=== PATIENT | female | born 1965 | race Caucasian/White ===

== ENCOUNTER 2021-11-03 10:56 | Outpatient (CLI) | payer OTHER ==
[2021-11-03 15:30] LABS: BASOPHILS % (AUTO) 0.5 %; HGB - HEMOGLOBIN 13.8 g/dL (12.0-16.0); LYMPHOCYTES # (AUTO) 0.8 10^3/uL (1.5-3.5); LYMPHOCYTES % (AUTO) 20.4 %; MEAN CORPUSCULAR HEMOGLOBIN 33.7 pg (27.0-31.0); MEAN CORPUSCULAR HGB CONC 33.7 g/dL (32.0-36.0); MEAN PLATELET VOLUME 9.7 fL (7.9-10.8); MONOCYTES # (AUTO) 0.4 10^3/uL (0.0-1.0); MONOCYTES % (AUTO) 9.8 %; NEUTROPHILS # (AUTO) 2.8 10^3/uL (1.5-6.6); NEUTROPHILS % (AUTO) 68.1 %; PLT - PLATELET COUNT 401 10^3/uL (130-450); RED CELL DISTRIBUTION WIDTH 12.1 % (12.0-15.0); WHITE BLOOD COUNT 4.1 x10^3/uL (4.8-10.8)
[2021-11-03 15:59] LABS: % IRON SATURATION 30 % (20-50); ALBUMIN 3.9 g/dL (3.2-5.5); ALBUMIN/GLOBULIN RATIO 1.2 (1.0-2.2); ALKALINE PHOSPHATASE 61 IU/L (42-121); ALT ALANINE AMINOTRANSFERASE 27 IU/L (10-60); AST ASPARTATE AMINOTRANSFERASE 24 IU/L (10-42); BILIRUBIN,TOTAL 0.7 mg/dL (0.2-1.0); BUN - BLOOD UREA NITROGEN 14 mg/dL (6-20); CALCIUM 9.3 mg/dL (8.5-10.3); CARBON DIOXIDE - CO2 26 mmol/L (21-32); CHLORIDE 105 mmol/L (101-111); CHOL/HDL RATIO 2.5 (<4.4); CHOLESTEROL 168 mg/dL; CREATININE 0.6 mg/dL (0.4-1.0); GFR - MDRD 105 (>89); GLUCOSE 119 mg/dL (70-100); HDL CHOLESTEROL 67 mg/dL; IRON 126 ug/dL (28-170); LDL CHOLESTEROL,CALCULATED 73 mg/dL; LDL/HDL RATIO 1.1 (<4.4); POTASSIUM 3.7 mmol/L (3.5-5.0); SODIUM 140 mmol/L (135-145); TOTAL IRON BINDING CAPACITY 423 ug/dL (250-450); TOTAL PROTEIN 7.2 g/dL (6.7-8.2); TRANSFERRIN 302 mg/dL (192-382); TRIGLYCERIDES 139 mg/dL; VLDL CHOLESTEROL 28 mg/dL
[2021-11-03 16:08] LABS: THYROID STIMULATING HORMONE 1.14 uIU/mL (0.34-5.60)
[2021-11-03 16:10] LABS: FREE T4 (FREE THYROXINE) 1.13 ng/dL (0.58-1.64)
[2021-11-03 16:12] LABS: FREE T3 3.37 pg/mL (2.5-3.9)
[2021-11-03 16:17] LABS: FERRITIN 18.8 ng/mL (11.0-306.8)
[2021-11-03 17:03] LABS: FOLATE > 49.60 ng/mL (5.90 - >24.8)
[2021-11-03 18:48] LABS: ESTIMATED AVERAGE GLUCOSE 108 mg/dL (70-100); HEMOGLOBIN A1c% 5.4 % (4.27-6.07)
[2021-11-06 02:52] LABS: PROGESTERONE 0.6 ng/mL
[2021-11-06 10:46] LABS: HOMOCYSTEINE 4.5 umol/L (<10.4)
== END 2021-11-03 10:57 | disposition home or self-care (01) ==
LOC: LAB.S 10:56
PROVIDERS: ATTEND Naturopath
DX: G47.00 Insomnia, unspecified (principal); R53.83 Other fatigue; Z13.21 Encounter for screening for nutritional disorder; N95.1 Menopausal and female climacteric states; Z13.220 Encounter for screening for lipoid disorders; Z13.29 Encounter for screening for other suspected endocrine disorder
CPT/HCPCS: 36415; 80053; 80061; 81599; 82607; 82626; 82627; 82672; 82728; 82746; 83036; 83090; 83540; 83721; 84144; 84402; 84403; 84439; 84443; 84466; 84481; 85025

== ENCOUNTER 2022-07-22 14:50 | Outpatient (CLI) | payer OTHER ==
[2022-07-22 20:08] LABS: BASOPHILS % (AUTO) 0.7 %; EOSINOPHILS % (AUTO) 0.5 %; HCT - HEMATOCRIT 40.2 % (37.0-47.0); HGB - HEMOGLOBIN 13.3 g/dL (12.0-16.0); LYMPHOCYTES # (AUTO) 1.4 10^3/uL (1.5-3.5); MEAN CORPUSCULAR HEMOGLOBIN 31.9 pg (27.0-31.0); MEAN CORPUSCULAR HGB CONC 33.1 g/dL (32.0-36.0); MEAN CORPUSCULAR VOLUME 96.4 fL (81.0-99.0); MONOCYTES # (AUTO) 0.5 10^3/uL (0.0-1.0); MONOCYTES % (AUTO) 8.5 %; NEUTROPHILS # (AUTO) 4.1 10^3/uL (1.5-6.6); NEUTROPHILS % (AUTO) 67.3 %; PLT - PLATELET COUNT 335 10^3/uL (130-450); RED BLOOD COUNT 4.17 10^6/uL (4.20-5.40); RED CELL DISTRIBUTION WIDTH 12.1 % (12.0-15.0); WHITE BLOOD COUNT 6.1 x10^3/uL (4.8-10.8)
[2022-07-22 20:55] LABS: % IRON SATURATION 15 % (20-50); IRON 60 ug/dL (28-170); TOTAL IRON BINDING CAPACITY 399 ug/dL (250-450); TRANSFERRIN 285 mg/dL (192-382)
[2022-07-24 07:10] LABS: PROGESTERONE 1.1 ng/mL (.)
[2022-07-25 14:08] LABS: FREE TESTOSTERONE(DIRECT) 2.1 pg/mL (0.0-4.2)
== END 2022-07-22 14:51 | disposition home or self-care (01) ==
LOC: LAB.S 14:50
PROVIDERS: ATTEND Naturopath
DX: N95.1 Menopausal and female climacteric states (principal); R53.83 Other fatigue; Z13.21 Encounter for screening for nutritional disorder
CPT/HCPCS: 36415; 81599; 82607; 82626; 82627; 82670; 82672; 82679; 82746; 83090; 83540; 84144; 84402; 84403; 84466; 85025

== ENCOUNTER 2023-01-08 15:04 | Outpatient (CLI) | payer OTHER ==
--- NOTE | 2023-01-09 09:52 | Mammography Report ---
BILATERAL DIGITAL SCREENING MAMMOGRAM 3D/2D WITH EXAGGERATED CC: 01/08/2023 CLINICAL: Routine screening. Baseline exam. No prior exams were available for comparison. Both breasts are heterogeneously dense, which may obscure small masses (category c / 51-75% glandular tissue). No significant masses, calcifications, or other findings are seen in either breast. IMPRESSION: NEGATIVE There is no mammographic evidence of malignancy. A 1 year screening mammogram is recommended. Based on the Tyrer Cuzick model (a risk assessment model) the patients lifetime risk is 15.4% and he r 10 year risk is 4.8%. According to the ACR, ACS, and NCCN guidelines, an annual breast MRI exam afua ng with mammogram is recommended if the patients lifetime risk is 20% or greater. This exam was interpreted at Station ID: [id number]. NOTE: For mammograms, a report in lay terms will be sent to the patient. Approximately 15% of breast malignancies will not be visualized mammographically. In the management of a palpable breast mass, a negative mammogram must not discourage biopsy of a clinically suspicious lesion. Electronically Signed By: Lyle Ortega M.D. [facility] [place]:01/09/2023 08:44:20 letter sent: No_Letter ACR BI-RADS Category 1: Negative 3341F PARENCHYMAL PATTERN: (D) - The breast(s) demonstrate(s) heterogeneously dense fibroglandular parmerari barraza. BI-RADS CATEGORY: (1) - 1 Mammogram [id number] 1 year screening LATERALITY: (B)
== END 2023-01-08 15:05 | disposition home or self-care (01) ==
LOC: DI.S 15:04
PROVIDERS: ATTEND Naturopath
DX: Z12.31 Encounter for screening mammogram for malignant neoplasm of breast (principal)

== ENCOUNTER 2023-04-10 08:51 | Outpatient (CLI) | payer OTHER ==
[2023-04-10 14:52] LABS: BASOPHILS % (AUTO) 0.5 %; EOSINOPHILS # (AUTO) 0.1 10^3/uL (0.0-0.7); EOSINOPHILS % (AUTO) 1.3 %; HGB - HEMOGLOBIN 13.9 g/dL (12.0-16.0); LYMPHOCYTES % (AUTO) 25.2 %; MEAN CORPUSCULAR HGB CONC 33.1 g/dL (32.0-36.0); MEAN CORPUSCULAR VOLUME 96.6 fL (81.0-99.0); MEAN PLATELET VOLUME 9.9 fL (7.9-10.8); MONOCYTES # (AUTO) 0.3 10^3/uL (0.0-1.0); MONOCYTES % (AUTO) 6.8 %; NEUTROPHILS # (AUTO) 2.6 10^3/uL (1.5-6.6); NEUTROPHILS % (AUTO) 65.9 %; PLT - PLATELET COUNT 298 10^3/uL (130-450); RED BLOOD COUNT 4.35 10^6/uL (4.20-5.40); RED CELL DISTRIBUTION WIDTH 12.3 % (12.0-15.0)
[2023-04-10 14:54] LABS: % IRON SATURATION 36 % (20-50); ALBUMIN 4.3 g/dL (3.2-5.5); ALBUMIN/GLOBULIN RATIO 1.7 (1.0-2.2); ALKALINE PHOSPHATASE 54 IU/L (42-121); ALT ALANINE AMINOTRANSFERASE 15 IU/L (10-60); AST ASPARTATE AMINOTRANSFERASE 18 IU/L (10-42); BILIRUBIN,TOTAL 0.9 mg/dL (0.2-1.0); BUN - BLOOD UREA NITROGEN 18 mg/dL (6-20); CALCIUM 9.6 mg/dL (8.5-10.3); CARBON DIOXIDE - CO2 30 mmol/L (21-32); CHLORIDE 105 mmol/L (101-111); CREATININE 0.6 mg/dL (0.6-1.3); GFR - MDRD 104 (>89); GLUCOSE 90 mg/dL (74-104); IRON 131 ug/dL (50-212); POTASSIUM 3.9 mmol/L (3.5-4.5); SODIUM 139 mmol/L (135-145); TOTAL IRON BINDING CAPACITY 367 ug/dL (250-450); TOTAL PROTEIN 6.9 g/dL (6.4-8.9); TRANSFERRIN 262 mg/dL (203-362)
[2023-04-10 15:17] LABS: ESTIMATED AVERAGE GLUCOSE 105 mg/dL (70-100); HEMOGLOBIN A1c% 5.3 % (4.27-6.07)
[2023-04-11 07:10] LABS: PROGESTERONE 0.6 ng/mL (.); SEX HORM BINDING GLOB SERUM 93.3 nmol/L (17.3-125.0)
[2023-04-12 14:08] LABS: FREE TESTOSTERONE(DIRECT) 1.6 pg/mL (0.0-4.2)
== END 2023-04-10 08:52 | disposition home or self-care (01) ==
LOC: LAB.S 08:51
PROVIDERS: ATTEND Naturopath
DX: G47.00 Insomnia, unspecified (principal); N95.1 Menopausal and female climacteric states; R53.83 Other fatigue; Z13.21 Encounter for screening for nutritional disorder; Z13.29 Encounter for screening for other suspected endocrine disorder
CPT/HCPCS: 36415; 80053; 81599; 82607; 82626; 82627; 82672; 82746; 83001; 83002; 83036; 83090; 83540; 84140; 84144; 84270; 84402; 84403; 84466; 85025

== ENCOUNTER 2023-04-13 13:40 | Emergency (ER) | payer OTHER ==
[2023-04-13 13:54] VITALS: BP 129/76; O2SAT 99
--- NOTE | 2023-04-13 14:15 | XRAY Report ---
PROCEDURE: Wrist 4 View LT INDICATIONS: Trauma TECHNIQUE: 4 views of the wrist were acquired. COMPARISON: None. FINDINGS: Bones: There is a mildly displaced fracture of the distal radius, with intra-articular involvement. There is impaction seen. No definite associated fracture of the adjacent distal ulna can be seen. Age-appropriate degenerative changes are seen. Soft tissues: No suspicious soft tissue calcifications or masses. IMPRESSION: Distal radius fracture, with impaction and intra-articular involvement. If it would be helpful for clinical management decision making, please consider a dedicated wrist CT for further evaluation. Reviewed by: Parish Alcantar MD on 04/13/2023 1:14 PM ALANA Approved by: Parish Alcantar MD on 04/13/2023 1:14 PM ALANA Station ID: [id number]
--- NOTE | 2023-04-13 15:36 | ED Physician Documentation ---
PD HPI UPPER EXT INJURY - Stated complaint Stated Complaint: LT WRIST INJ - Chief complaint Chief Complaint: Trauma Ext - History obtained from History obtained from: Patient (Right-handed woman fell on outstretched left wrist. Injured the distal wrist. No other injuries. Happened today. Pain is mild.) PD PAST MEDICAL HISTORY - Allergies Allergies/Adverse Reactions: Allergies Allergy/AdvReac Type Severity Reaction Status Date / Time amoxicillin Allergy Hives Verified 04/13/23 13:48 PD ED PE NORMAL - Vitals Vital signs reviewed: Yes - General General: Alert and oriented X 3, No acute distress - Extremities Extremities: Other (Tender to the distal radius, no deformity. Wedding ring removed during exam.) - Neuro Neuro: Alert and oriented X 3, Normal speech Results - Vitals Vitals: Vital Signs - 24 hr 04/13/23 13:48 Temperature 37 C Heart Rate 73 Respiratory 16 Rate Blood Pressure 129/76 O2 Saturation 99 Oxygen O2 Source Room air - Rads (name of study) 4 view left wrist x-ray with distal radius fracture. Relevant Findings:: Final report received, [facility] independent interpretation of test Procedures - Splint (location) - Minor LUE Splint applied by: Physician Type of splint: Fiberglass, Short arm, Volar cock up Other: Patient tolerated well, No complications, Neurovascular intact Departure - Departure Disposition: 01 Home, Self Care Clinical Impression: Distal radial fracture Qualifiers: Encounter type: initial encounter Fracture type: closed Fracture morphology: Colles' Laterality: left Qualified Code(s): S52.532A - Colles' fracture of left radius, initial encounter for closed fracture Condition: Good Record reviewed to determine appropriate education?: Yes Instructions: ED Fx Forearm Radius Ulna No Redu Requ Follow-Up: Orthopedic Care [Provider Group] - Within 1 week Comments: Keep the splint on and dry, follow-up with orthopedics within the week. Tylenol and/or ibuprofen as needed for pain. You can also ice through the splint. Start calling tomorrow for follow-up appointment. Return if worse.
== END 2023-04-13 15:41 | disposition home or self-care (01) ==
LOC: ED 13:40
DX: S52.532A Colles' fracture of left radius, initial encounter for closed fracture (principal); W18.30XA Fall on same level, unspecified, initial encounter
CPT/HCPCS: 29125; 99283

== ENCOUNTER 2023-05-26 08:43 | Outpatient (CLI) | payer OTHER ==
[2023-05-26 14:56] LABS: BASOPHILS % (AUTO) 0.8 %; EOSINOPHILS # (AUTO) 0.1 10^3/uL (0.0-0.7); EOSINOPHILS % (AUTO) 1.5 %; HCT - HEMATOCRIT 43.6 % (37.0-47.0); HGB - HEMOGLOBIN 14.6 g/dL (12.0-16.0); LYMPHOCYTES # (AUTO) 1.2 10^3/uL (1.5-3.5); LYMPHOCYTES % (AUTO) 30.7 %; MEAN CORPUSCULAR HEMOGLOBIN 32.4 pg (27.0-31.0); MEAN CORPUSCULAR HGB CONC 33.5 g/dL (32.0-36.0); MEAN CORPUSCULAR VOLUME 96.9 fL (81.0-99.0); MONOCYTES # (AUTO) 0.4 10^3/uL (0.0-1.0); MONOCYTES % (AUTO) 9.3 %; NEUTROPHILS # (AUTO) 2.3 10^3/uL (1.5-6.6); NEUTROPHILS % (AUTO) 57.4 %; PLT - PLATELET COUNT 312 10^3/uL (130-450); RED CELL DISTRIBUTION WIDTH 12.2 % (12.0-15.0)
== END 2023-05-26 08:44 | disposition home or self-care (01) ==
LOC: LAB.S 08:43
PROVIDERS: ATTEND Naturopath
DX: G47.00 Insomnia, unspecified (principal); N95.1 Menopausal and female climacteric states; R68.89 Other general symptoms and signs; R53.83 Other fatigue; R51.9 Headache, unspecified; D72.819 Decreased white blood cell count, unspecified; Z51.81 Encounter for therapeutic drug level monitoring; N95.2 Postmenopausal atrophic vaginitis
CPT/HCPCS: 36415; 81599; 82670; 83001; 84140; 84144; 85025

== ENCOUNTER 2023-05-29 08:00 | Outpatient (CLI) | payer OTHER ==
--- NOTE | 2023-05-29 18:49 | XRAY Report ---
PROCEDURE: Wrist 3 View LT INDICATIONS: LEFT WRIST FX TECHNIQUE: 3 views of the wrist were acquired. COMPARISON: None FINDINGS: Bones: Healing distal radial fracture shows increased sclerosis and bridging callus laterally. Degen erative changes noted involving the triscaphe and first CMC joints Soft tissues: No suspicious soft tissue calcifications or masses. IMPRESSION: Healing distal radial fracture Reviewed by: Kenny Frye MD on 05/29/2023 5:47 PM AKSAMANTHA Approved by: Kenny Frye MD on 05/29/2023 5:47 PM AKDT Station ID: [id number]
== END 2023-05-29 23:59 | disposition home or self-care (01) ==
LOC: DI.WOS 08:00
PROVIDERS: ATTEND Physician Assistant Surgical
DX: S52.552D Other extraarticular fracture of lower end of left radius, subsequent encounter for closed fracture with routine healing (principal)

== ENCOUNTER 2023-10-30 09:14 | Outpatient (CLI) | payer OTHER ==
[2023-10-30 15:31] LABS: BASOPHILS % (AUTO) 0.6 %; EOSINOPHILS % (AUTO) 0.9 %; HGB - HEMOGLOBIN 14.4 g/dL (12.0-16.0); LYMPHOCYTES # (AUTO) 1.1 10^3/uL (1.5-3.5); LYMPHOCYTES % (AUTO) 32.2 %; MEAN CORPUSCULAR HEMOGLOBIN 32.7 pg (27.0-31.0); MEAN CORPUSCULAR HGB CONC 32.7 g/dL (32.0-36.0); MEAN CORPUSCULAR VOLUME 99.8 fL (81.0-99.0); MEAN PLATELET VOLUME 10.1 fL (7.9-10.8); MONOCYTES # (AUTO) 0.2 10^3/uL (0.0-1.0); MONOCYTES % (AUTO) 6.7 %; NEUTROPHILS % (AUTO) 59.6 %; PLT - PLATELET COUNT 275 10^3/uL (130-450); RED BLOOD COUNT 4.41 10^6/uL (4.20-5.40); RED CELL DISTRIBUTION WIDTH 12.1 % (12.0-15.0); WHITE BLOOD COUNT 3.3 x10^3/uL (4.8-10.8)
[2023-10-30 16:15] LABS: % IRON SATURATION 52 % (20-50); ALBUMIN 4.5 g/dL (3.2-5.5); ALBUMIN/GLOBULIN RATIO 1.8 (1.0-2.2); ALKALINE PHOSPHATASE 45 IU/L (42-121); ALT ALANINE AMINOTRANSFERASE 19 IU/L (10-60); AST ASPARTATE AMINOTRANSFERASE 21 IU/L (10-42); BILIRUBIN,TOTAL 0.7 mg/dL (0.2-1.0); BUN - BLOOD UREA NITROGEN 16 mg/dL (6-20); CALCIUM 9.5 mg/dL (8.5-10.3); CARBON DIOXIDE - CO2 27 mmol/L (21-32); CHLORIDE 105 mmol/L (101-111); CHOL/HDL RATIO 2.7 (<4.4); CHOLESTEROL 155 mg/dL; CREATININE 0.6 mg/dL (0.6-1.3); GFR - MDRD 104 (>89); GLUCOSE 90 mg/dL (74-104); HDL CHOLESTEROL 57 mg/dL; IRON 171 ug/dL (50-212); LDL CHOLESTEROL,CALCULATED 82 mg/dL; LDL/HDL RATIO 1.4 (<4.4); POTASSIUM 3.8 mmol/L (3.5-4.5); SODIUM 136 mmol/L (135-145); TOTAL IRON BINDING CAPACITY 329 ug/dL (250-450); TRANSFERRIN 235 mg/dL (203-362); TRIGLYCERIDES 80 mg/dL (48-352); VLDL CHOLESTEROL 16 mg/dL
[2023-10-31 23:08] LABS: DHEA-SULFATE 94.6 ug/dL (29.4-220.5)
== END 2023-10-30 09:15 | disposition home or self-care (01) ==
LOC: LAB.S 09:14
PROVIDERS: ATTEND Naturopath
DX: G47.00 Insomnia, unspecified (principal); R53.83 Other fatigue; Z13.220 Encounter for screening for lipoid disorders; N95.2 Postmenopausal atrophic vaginitis; N95.1 Menopausal and female climacteric states; Z13.21 Encounter for screening for nutritional disorder
CPT/HCPCS: 36415; 80053; 80061; 82607; 82626; 82627; 82670; 82672; 82679; 82746; 83540; 83721; 84144; 84402; 84403; 84466; 85025